=== PATIENT | male | born 1995 | race African-American/Black ===

== ENCOUNTER 2017-08-21 06:32 | Emergency (ER) | payer OTHER ==
[~2017-08-21] VITALS: Ht 165.1 cm; Wt 52.1 kg
[2017-08-21 06:59] LABS: HEMATOCRIT 45.7 % (38.0-50.0); HEMOGLOBIN 15.6 G/DL (12.5-16.6); MCH 32.4 PG (29.0-34.0); MCHC 34.1 G/DL (30.0-36.0); RBC DIS.WIDTH-CV 13.4 % (11.8-14.6); RBC DIS.WIDTH-SD 47.7 % (39-53); RED BLOOD COUNT 4.81 M/uL (4.00-5.50); WHITE BLOOD COUNT 8.9 K/uL (4.1-10.2)
[2017-08-21 07:32] LABS: CHLORIDE 104 MEQ/L (99-109); CREATININE 0.9 MG/DL (0.6-1.3); GFR ESTIMATE (CALCULATED) > 59 mL/min/ (58.99-99999); GLUCOSE 88 mg/dL (70-99); POTASSIUM 3.8 MEQ/L (3.7-5.4); SODIUM 142 MEQ/L (136-147); UREA NITROGEN (BUN) 14 mg/dL (9-23)
[2017-08-21 07:55] LABS: PLAT.SUFFICIENCY ADEQUATE; PLATELET COUNT 203 K/uL (156-360)
[2017-08-21] MEDS ORDERED: ZANTAC150 MG PO (09:10)
[2017-08-21] MEDS ORDERED: PREDNISONE20 MG PO (09:10)
[2017-08-21 09:35] VITALS: BP 115/66
== END 2017-08-21 09:40 | disposition home or self-care (01) ==
LOC: EME 06:32
DX: J45.901 Unspecified asthma with (acute) exacerbation (principal); J30.2 Other seasonal allergic rhinitis
CPT/HCPCS: 71046; 80048; 85027; 94640; 94664; 99281; 99284; J7512